=== PATIENT | male | born 1960 | race Caucasian/White ===

== ENCOUNTER 2018-03-04 14:13 | Inpatient (IN) | payer SELFPAY ==
[2018-03-04 14:44] LABS: #Basophils 0.1 thou/uL (0.0-0.2); #Eosinphils 0.9 thou/uL (0.0-0.7); #Lymphocytes 1.7 thou/uL (1.20-3.40); #Monocytes 1.3 thou/uL (0.11-0.59); #Neutrophils 9.2 thou/uL (1.40-6.50); %Basophils 0.7 % (0.0-1.0); %Eosinophils 6.9 % (0.0-10.0); %Lymphocytes 12.6 % (21.0-51.0); %Monocytes 10.1 % (0.0-10.0); %Neutrophils 69.6 % (42.0-75.0); Hemoglobin 11.1 g/dL (14.0-18.0); Mean Corpuscular HGB CONC 33.2 g/dL (32.0-36.0); Mean Corpuscular Hemoglobin 28.9 pg (27.0-31.0); Mean Platelet Volume 7.4 fL (7.4-10.4); Platelet Count 507 thou/uL (130-400); RBC Distribution Width 12.6 % (11.5-14.5); Red Blood Cell (RBC) Count 3.84 mill/uL (4.70-6.10); White Blood Cell (WBC) Count 13.2 thou/uL (4.8-10.8)
[2018-03-04 15:05] LABS: ALT (SGPT) 18 U/L (8-55); AST (SGOT) 12 U/L (5-34); Albumin 4.1 g/dL (3.5-5.0); Alkaline Phosphatase 49 U/L (40-150); Anion Gap 12 mmol/L (10-20); BUN (Urea Nitrogen) 37 mg/dL (8.4-25.7); CK (CPK) 62 U/L (30-200); Calc. Creatinine Clearance 0 mL/min (70-130); Calcium 9.8 mg/dL (7.8-10.44); Carbon Dioxide 23 mmol/L (22-29); Chloride 105 mmol/L (98-107); Estimated GFR-MDRD 57; Globulin 3.3 g/dL (2.4-3.5); Glucose 92 mg/dL (70-105); Potassium 4.1 mmol/L (3.5-5.1); Protein, Total 7.4 g/dL (6.0-8.3); Sodium 136 mmol/L (136-145)
[2018-03-04 15:07] LABS: CKMB 1.5 ng/mL (0-6.6)
--- NOTE | 2018-03-04 16:16 | RAD ---
AP CHEST: Date: 03-04-18 Comparison: 02-02-11 History: Difficulty breathing and left arm pain which began Monday. FINDINGS: AP view chest demonstrates the lungs to be well aerated. No evidence of active intrathoracic disease seen. No evidence of effusions, pneumonia, or pneumothorax seen. IMPRESSION: Unremarkable AP view chest. POS: [facility]
[2018-03-04] MEDS ORDERED: Mag-Al 1200 mg/1200 mg/30 ML UDCUP PO PRN (16:23)
[2018-03-04] MEDS ORDERED: Guaifenesin DM 100-10/5 ML UDCUP PO PRN (16:23)
[2018-03-04] MEDS ORDERED: Ondansetron HCl/PF 4 MG/2 ML Vial IVP PRN (16:23)
--- NOTE | 2018-03-04 16:43 | HP ---
REASON FOR ADMISSION: Bronchitis, chest pain, exertional SOB for eval. HISTORY OF PRESENTING ILLNESS: The patient gives history of being on a cruise and started to develop shortness of breath on minimal exertion from Monday. This was associated with left-sided chest pain and left upper extremity radiation. The chest pain was 4/10 in intensity and was dull in nature. He would get relief on rest. As the patient did not do any activity on on the cruise he was not symptomatic. On Monday and Monday, patient started to move around on the cruise and had similar episodes at least 2 or 3 times. He got out of cruise this morning and came straight from [place] to [facility] here. He lives around here. He has had a prior stress test done in [address] Campos's office and as far as he knows was normal. He never had prior heart failure or angiograms. Has dry cough, but no expectoration. No complaints of palpitations or PND. Has mild orthopnea and is comfortable at present. No complaints of fever at home. PAST MEDICAL AND SURGICAL HISTORY: History of hypertension, dyslipidemia, bilateral lower extremity eczema likely atopic. CURRENT MEDICATIONS: Atenolol 50 mg p.o. twice daily, Norvasc 10 mg daily, Cozaar 100 mg daily, atorvastatin 10 mg daily, gemfibrozil 600 mg p.o. twice daily. ALLERGIES: No known drug allergies. PERSONAL HISTORY: Does not abuse alcohol or drugs. No history of smoking. Lives with his . FAMILY HISTORY: Mother is living and healthy. Father at the age of 74 years. He has had history of dementia, diabetes, and prostate issues. REVIEW OF SYSTEMS: The following complete review of systems was negative, unless otherwise mentioned in the HPI or below: Constitutional: Weight loss or gain, ability to conduct usual activities. Skin: Rash, itching. Eyes: Double vision, pain. ENT/Mouth: Nose bleeding, neck stiffness, pain, tenderness. Cardiovascular: Palpitations, dyspnea on exertion, orthopnea. Respiratory: Shortness of breath, wheezing, cough, hemoptysis, fever or night sweats. Gastrointestinal: Poor appetite, abdominal pain, heartburn, nausea, vomiting, constipation, or diarrhea. Genitourinary: Urgency, frequency, dysuria, nocturia. Musculoskeletal: Pain, swelling. Neurologic/Psychiatric: Anxiety, depression. Allergy/Immunologic: Skin rash, bleeding tendency. PHYSICAL EXAMINATION: GENERAL: The patient is a 57-year-old male who is currently not in any acute distress. VITAL SIGNS: Blood pressure 100/86, pulse 68 per minute, respiratory rate 18 per minute, temperature 98.1 degrees Fahrenheit, and saturating 95% on room air. NECK: Supple, no elevated JVD. EYES: Extraocular muscles intact. Pupils reacting to light. ORAL CAVITY: Mucous membranes are moist. No exudates or congestion. CARDIOVASCULAR SYSTEM: S1, S2 heard. Regular rhythm, murmur+. RESPIRATORY SYSTEM: Air entry 1+ bilateral. Scattered rhonchi plus bilateral. ABDOMEN: Soft, bowel sounds heard. No tenderness, rigidity or guarding. EXTREMITIES: No peripheral edema or calf tenderness. Has skin excoriation with thickening in both lower extremities due to chronic eczema, mainly over the posterior aspect of his both legs. CENTRAL NERVOUS SYSTEM: No gross focal deficits seen. Patient is alert, awake , and oriented well. PSYCHIATRIC SYSTEM: The patient's mood is euthymic. No hallucinations or delusions. LABORATORY DATA AND IMAGING DATA: White count of 13, hemoglobin and hematocrit 11 and 33, platelet count 507 with 69% neutrophils, MCV is 87. Electrolytes stable. BUN 37 and creatinine 1.29. Liver enzymes are within normal limits. Cardiac enzymes x1 is negative. BNP is 225, albumin is 4.1. Chest x-ray done shows no acute infiltrate. EKG done shows normal sinus rhythm at 64 beats per minute, corrected QT interval was 441 milliseconds. CLINICAL IMPRESSION AND PLAN: The patient will be placed under observation on telemetry for sudden onset of exertional dyspnea with typical chest pain. Patient most likely has a component of acute bronchitis with him being on the cruise. We will place him empirically on Levaquin for now. We will also obtain blood cultures and sputum cultures as well. He will be given one dose of Lasix today and 2 more doses in the morning. He will be on albuterol nebulizer. Continue aspirin, Lipitor, and Norvasc as before. We will obtain echo with 2D Doppler for LV function and valvular abnormalities, and a nuclear stress test in the morning. Two more sets of cardiac enzymes will be obtained as well. If needed, further specialist consultation will be requested. He will be currently under observation and if patient were to worsen, he will be switched over to inpatient status. [facility]
[2018-03-04] MEDS ORDERED: Furosemide 40 MG/4 ML VIAL SLOW IVP SCH (17:00)
[2018-03-04] MEDS ORDERED: Levofloxacin 750 mg/D5W 500 MG in Premix Bag 1 BAG IVPB SCH (17:00)
[2018-03-04] MEDS: Gemfibrozil 600 MG TAB PO SCH (18:28)
[2018-03-04 18:40] LABS: Troponin I 0.031 ng/mL (< 0.028)
[2018-03-04] MEDS: Acetaminophen 325 MG TAB PO PRN (20:33)
[2018-03-04] MEDS: Atorvastatin Calcium 10 MG TAB PO SCH (20:34)
[2018-03-04] MEDS ORDERED: Losartan 25 MG TAB PO SCH (21:00)
[2018-03-04 21:05] LABS: Troponin I 0.023 ng/mL (< 0.028)
[2018-03-04] MEDS: Albuterol Sulfate 1.25 MG/3 ML NEB NEB SCH (23:39)
[2018-03-05 04:52] VITALS: BMI 30.1
[2018-03-05 05:13] LABS: #Basophils 0.1 thou/uL (0.0-0.2); #Eosinphils 0.6 thou/uL (0.0-0.7); #Lymphocytes 1.5 thou/uL (1.20-3.40); #Monocytes 1.3 thou/uL (0.11-0.59); #Neutrophils 10.6 thou/uL (1.40-6.50); %Basophils 0.9 % (0.0-1.0); %Eosinophils 4.1 % (0.0-10.0); %Lymphocytes 10.8 % (21.0-51.0); %Monocytes 9.3 % (0.0-10.0); Hemoglobin 11.6 g/dL (14.0-18.0); Mean Corpuscular HGB CONC 33.9 g/dL (32.0-36.0); Mean Corpuscular Hemoglobin 28.7 pg (27.0-31.0); Mean Corpuscular Volume 84.6 fl (80.0-94.0); Mean Platelet Volume 7.6 fL (7.4-10.4); Platelet Count 515 thou/uL (130-400); RBC Distribution Width 12.6 % (11.5-14.5); Red Blood Cell (RBC) Count 4.05 mill/uL (4.70-6.10); White Blood Cell (WBC) Count 14.1 thou/uL (4.8-10.8)
[2018-03-05 05:39] LABS: Anion Gap 14 mmol/L (10-20); BUN (Urea Nitrogen) 39 mg/dL (8.4-25.7); Calc. Creatinine Clearance 63 mL/min (70-130); Calcium 9.4 mg/dL (7.8-10.44); Carbon Dioxide 22 mmol/L (22-29); Cardiac Risk 6.1 (Less than 4.5); Chloride 105 mmol/L (98-107); Cholesterol 141 mg/dl (< 200 Desired); Estimated GFR-MDRD 52; Glucose 112 mg/dL (70-105); HDL Cholesterol 23 mg/dL (>60 Neg Risk); LDL Cholesterol, Calculated 96 mg/dL; Potassium 3.8 mmol/L (3.5-5.1); Sodium 137 mmol/L (136-145); Triglycerides 108 mg/dL (Less than 150)
[2018-03-05] MEDS ORDERED: Furosemide 40 MG/4 ML VIAL SLOW IVP SCH (06:00)
[2018-03-05] MEDS: Albuterol Sulfate 1.25 MG/3 ML NEB NEB SCH ×3 (08:27→23:56)
[2018-03-05] MEDS: Gemfibrozil 600 MG TAB PO SCH ×2 (08:38→19:23)
[2018-03-05] MEDS ORDERED: Enoxaparin Sodium 40 MG/0.4 ML SYRINGE SC SCH (09:00)
[2018-03-05] MEDS: Aspirin 325 MG TAB PO SCH (12:06)
[2018-03-05] MEDS: Amoxicillin/Potassium Clav 875 MG TAB PO SCH ×2 (12:07→19:44)
[2018-03-05] MEDS: Amlodipine 10 MG TAB PO SCH (12:07)
[2018-03-05] MEDS ORDERED: Regadenoson 0.4 MG/5 ML SYRINGE ONE (12:07)
[2018-03-05] MEDS: Acetaminophen 325 MG TAB PO PRN (12:12)
--- NOTE | 2018-03-05 12:22 | NM ---
NUCLEAR MEDICINE CARDIAC PERFUSION EXAMINATION WITH EJECTION FRACTION: HISTORY: A 57-year-old male with chest pain that is exacerbated with exercise and laying down. TECHNIQUE: A single-day nuclear medicine cardiac perfusion examination was performed. Rest images were obtained using 9.9 mCi of Technetium 99m sestamibi. Stress images were obtained using 33 mCi of Technetium 9 9m sestamibi and LexiScan. FINDINGS: Tomographic images show a small reversible perfusion defect along the lateral wall and apex. Gated i mages show normal wall motion with an ejection fraction of 62%. EDV is 131 mL. LHR is 0.5. TID is 1.4. IMPRESSION: Possible lateral/apical ischemia. POS: [facility]
--- NOTE | 2018-03-05 12:30 | PDOC.PN ---
- Subjective Encounter Start Date: 03/05/18 Encounter Start Time: 07:00 Subjective: no chest pain or palp -: still has exertional sob - Objective Resuscitation Status: Resuscitation Status FULL:Full Resuscitation MAR Reviewed: Yes Vital Signs & Weight: Vital Signs (12 hours) Temp Pulse Resp BP Pulse Ox 03/05/18 12:09 97.2 F L 84 20 119/55 L 97 03/05/18 08:27 70 16 96 03/05/18 08:00 98.0 F 70 16 03/05/18 07:40 98 F 71 18 107/54 L 94 L 03/05/18 03:49 98.2 F 75 18 129/60 96 Weight Weight 171 lb 8 oz I&O: 03/04/18 03/05/18 03/06/18 06:59 06:59 06:59 Intake Total 414 Output Total 1650 Balance -1236 Result Diagrams: 03/05/18 04:21 03/05/18 04:21 Phys Exam - Physical Examination HEENT: PERRLA, moist MMs Neck: no JVD, supple Respiratory: no wheezing, no rales Cardiovascular: RRR murmur++ Gastrointestinal: soft, non-tender, positive bowel sounds Musculoskeletal: no edema, pulses present Neurological: non-focal, moves all 4 limbs Psychiatric: normal affect, A&O x 3 Dx/Plan (1) Chest pain Code(s): R07.9 - CHEST PAIN, UNSPECIFIED Status: Acute (2) Acute bronchitis Code(s): J20.9 - ACUTE BRONCHITIS, UNSPECIFIED Status: Acute Qualifiers: Bronchitis organism: unspecified organism Qualified Code(s): J20.9 - Acute bronchitis, unspecified (3) HTN (hypertension) Code(s): I10 - ESSENTIAL (PRIMARY) HYPERTENSION Status: Chronic Qualifiers: Hypertension type: essential hypertension Qualified Code(s): I10 - Essential (primary) hypertension (4) Dyslipidemia Code(s): E78.5 - HYPERLIPIDEMIA, UNSPECIFIED Status: Chronic - Plan viral pcr is -ve -: await echo for estimation of valvular defect -: abnormal stress test, keep pt npo, cardio consult -: on asp, lipitor, norvasc, augmentin and alb neb -: watch for renal function, will gently hydrate in view of possible cath * . Review of Systems - Medications/Allergies Allergies/Adverse Reactions: Allergies Allergy/AdvReac Type Severity Reaction Status Date / Time No Known Drug Allergies Allergy Verified 03/04/18 18:40 Medications: Current Medications Acetaminophen (Tylenol) 650 mg PO Q4H PRN PRN Reason: Headache/Fever or Pain Last Admin: 03/05/18 12:12 Dose: 650 mg Al Hydroxide/Mg Hydroxide (Maalox) 30 ml PO Q6H PRN PRN Reason: Heartburn or Indigestion Albuterol Sulfate (Albuterol Sulfate) 1.25 mg NEB [id number] [facility] Last Admin: 03/05/18 08:27 Dose: 1.25 mg Amlodipine Besylate (Norvasc) 10 mg PO DAILY [facility] Last Admin: 03/05/18 12:07 Dose: 10 mg Amoxicillin/Clavulanate Potassium (Augmentin) 875 mg PO Q12HR [facility] Last Admin: 03/05/18 12:07 Dose: 875 mg Aspirin (Aspirin) 325 mg PO DAILY [facility] Last Admin: 03/05/18 12:06 Dose: 325 mg Atorvastatin Calcium (Lipitor) 10 mg PO HS [facility] Last Admin: 03/04/18 20:34 Dose: 10 mg Enoxaparin Sodium (Lovenox) 40 mg SC 0900 [facility] Gemfibrozil (Lopid) 600 mg PO BID-AC [facility] Last Admin: 03/05/18 08:38 Dose: Not Given Guaifenesin/Dextromethorphan (Robitussin Dm) 15 ml PO Q4H PRN PRN Reason: Cough Last Admin: 03/04/18 20:35 Dose: 15 ml Ondansetron HCl (Zofran) 4 mg IVP Q6H PRN PRN Reason: Nausea/Vomiting Sodium Chloride (Flush - Normal Saline) 10 ml IVF Q12HR [facility] Sodium Chloride (Flush - Normal Saline) 10 ml IVF PRN PRN PRN Reason: Saline Flush
[2018-03-05] MEDS ORDERED: Sodium Chloride 0.9% 1,000 ML IV SCH (12:45)
[2018-03-05] MEDS ORDERED: Communication Order-Pharmacy FS SCH (17:00)
--- NOTE | 2018-03-05 18:39 | CON ---
DATE OF ADMISSION: 03/04/2018 DATE OF CONSULTATION: 03/05/2018 INDICATION FOR CONSULTATION: A 57-year-old patient with shortness of breath and chest discomfort and abnormal stress test as well as a history of mitral valve regurgitation. HISTORY OF PRESENT ILLNESS: This is a very pleasant 57-year-old gentleman who is hard of hearing and was on a cruise recently and had increased problems breathing. He yesterday had shortness of breath . He has some dyspnea on exertion and also had some paroxysmal nocturnal dyspnea. For the last 2 or 3 nights on the ship, he has more difficulty breathing. He also complained of some left arm pain an d chest heaviness. He said after he sat up, he felt somewhat better. He did take ibuprofen, but no aspirin. He has had his last stress test in 2013, which was unremarkable. He also had an echocardio gram, which showed mitral valve regurgitation at that time and this was moderate to severe. He was t o follow up in the office six months later and he failed to do so. He also had mild aortic valve reg urgitation at that time. Ejection fraction was within normal limits at 55% to 60%. He denied any ot her previous cardiac history. PAST MEDICAL HISTORY: Significant for pneumonia in 2009 and partial deafness. SOCIAL HISTORY: He is . He has no children. He has no tobacco abuse. He has occasional alc ohol use. He works repairing boots and shoes. FAMILY HISTORY: Unremarkable for any early heart disease. MEDICATIONS: Include albuterol inhaler, he is on Norvasc 10 mg a day, amoxicillin, atorvastatin 10 m g q.p.m., Lovenox, he was given also a dose of Lasix, he is on gemfibrozil 600 mg b.i.d., as well as other p.r.n. medications. REVIEW OF SYSTEMS: He has decreased hearing. He has partial plates. He wears glasses to read. Oth erwise, 12-point review of systems unremarkable. PHYSICAL EXAMINATION: GENERAL: Reveals a well-developed, well-nourished gentleman. VITAL SIGNS: Blood pressure 119/55, heart rate 84 and regular. He is afebrile, respiratory rate 16. HEENT: Shows head to be normocephalic and atraumatic. Carotid pulses are present. There is radiati on from the cardiac area up into the carotids, but does not appear to be carotid artery stenosis. CHEST: Clear to auscultation without rales, rhonchi or wheezing. CARDIOVASCULAR: Reveals a regular rate and rhythm. He has a harsh 4/6 systolic murmur at the apex. He also has a systolic murmur over the aortic area, which may be some radiation from the mitral area s. This is over the entire precordium. There were no heaves or thrills noted. ABDOMEN: Soft and nontender with positive bowel sounds. No organomegaly or masses are noted. Femor al pulses are present. EXTREMITIES: Showed no clubbing or cyanosis. He does have some discoloration in the bilateral lower legs and pedal pulses were present, but are difficult to palpate, cannot palpate the dorsalis pedis on the right foot. The posterior tibial was present, could not palpate a posterior tibial on the lef t side, but could palpate a dorsalis pedis. NEUROLOGIC: The patient appears to be intact. He has normal strength and tone. SKIN: Warm and dry. LABORATORY DATA AND IMAGING: EKG shows a normal sinus rhythm with no acute changes. Cardiac enzymes show a troponin I of 0.02 admission, which increased up to 0.031 and decreased back down to 0.023. MB 1.5. His BNP was 225, LDL was 96. His other laboratory data was unremarkable. His creatinine is 1.4 after he was given diuretics. Otherwise, he has remained stable. Potassium is 3.8. His stress test was abnormal. He did undergo a Cardiolite study today and the results showed what appeared to be possible lateral apical ischemia. IMPRESSION AND PLAN: 1. A 57-year-old patient with shortness of breath, history of mitral valve regurgitation and abnorm al stress test with increasing shortness of breath and dyspnea on exertion. Given all these symptoms and his history, he will best be served by undergoing cardiac catheterization as a definitive tool t o evaluate his coronary artery status. We will plan for this tomorrow. We will discuss this with Dr Amber Campos as he has seen the patient in the past and was hopefully schedule the patient for tomorrow morning for cardiac catheterization. At this time, I would continue his present medications. If he has any acute changes, he may become an emergent catheterization tonight. It was unlikely he seems to be very comfortable at this time. 2. History of mitral valve regurgitation. This appears to be relatively severe at this time. He ma y need to undergo mitral valve repair or replacement. We will continue to follow this very carefully with this patient. He may need to have further evaluation, certainly coronary artery status will ne ed to be identified first. 3. History of hypertension, that appears to be under good control at this time. 4. Hyperlipidemia. He will continue his present medications with statin medications. Further care of the patient will be determined by Dr. Campos.
[2018-03-05] MEDS: Atorvastatin Calcium 10 MG TAB PO SCH (19:44)
[2018-03-06] MEDS: Gemfibrozil 600 MG TAB PO SCH ×2 (06:18→17:12)
[2018-03-06] MEDS: Amoxicillin/Potassium Clav 875 MG TAB PO SCH ×2 (06:18→19:41)
[2018-03-06] MEDS: Aspirin 325 MG TAB PO SCH (06:18)
[2018-03-06] MEDS ORDERED: Lidocaine 1% (PF) 30 ML VIAL ONE (07:27)
[2018-03-06] MEDS ORDERED: Heparin 10,000 UNITS/1 ML VIAL ONE (07:28)
[2018-03-06] MEDS ORDERED: Communication Order-Pharmacy FS SCH (07:30)
[2018-03-06] MEDS ORDERED: Sodium Chloride 0.9% 1,000 ML IV SCH ×2 (07:30→09:23)
[2018-03-06] MEDS ORDERED: Fentanyl 250 MCG/5 ML VIAL ONE (08:00)
[2018-03-06] MEDS ORDERED: Midazolam HCl 2 mg/2 ml Vial ONE (08:00)
[2018-03-06] MEDS: Albuterol Sulfate 1.25 MG/3 ML NEB NEB SCH ×3 (08:06→19:40)
[2018-03-06] MEDS ORDERED: Protamine Sulfate 50 MG/5 ML VIAL ONE (08:56)
[2018-03-06] MEDS ORDERED: Acetaminophen/Codeine 30-300mg Tablet PO PRN ×2 (09:22)
[2018-03-06] MEDS ORDERED: Nitroglycerin 0.4 MG TAB (25 Tab Bottle) SL PRN (09:22)
[2018-03-06] MEDS ORDERED: traMADol HCl 50 MG TAB PO PRN (09:22)
[2018-03-06] MEDS ORDERED: Sodium Chloride 0.9% 200 ML IV SCH (09:30)
[2018-03-06 10:27] LABS: Anion Gap 14 mmol/L (10-20); BUN (Urea Nitrogen) 31 mg/dL (8.4-25.7); Calc. Creatinine Clearance 90 mL/min (70-130); Calcium 9.2 mg/dL (7.8-10.44); Carbon Dioxide 19 mmol/L (22-29); Chloride 106 mmol/L (98-107); Estimated GFR-MDRD 78; Glucose 117 mg/dL (70-105); Potassium 4.2 mmol/L (3.5-5.1); Sodium 135 mmol/L (136-145)
[2018-03-06] MEDS: Amlodipine 10 MG TAB PO SCH (12:30)
--- NOTE | 2018-03-06 12:47 | PDOC.PN ---
- Subjective Encounter Start Date: 03/06/18 Encounter Start Time: 11:00 Subjective: no sob or palpitations -: had cath done this am - Objective Resuscitation Status: Resuscitation Status FULL:Full Resuscitation MAR Reviewed: Yes Vital Signs & Weight: Vital Signs (12 hours) Temp Pulse Resp BP BP Pulse Ox 03/06/18 12:30 81 03/06/18 11:25 81 16 139/60 95 03/06/18 07:35 97.8 F 81 20 03/06/18 04:40 97.8 F 81 20 95/52 L 95 Weight Weight 172 lb 6.4 oz I&O: 03/05/18 03/06/18 03/07/18 06:59 06:59 06:59 Intake Total 414 935 Output Total 1650 1275 Balance -1236 -340 Result Diagrams: 03/05/18 04:21 03/06/18 09:51 Phys Exam - Physical Examination HEENT: PERRLA, moist MMs Neck: no JVD, supple Respiratory: no wheezing, no rales Cardiovascular: RRR murmur+ Gastrointestinal: soft, no distention, positive bowel sounds Musculoskeletal: no edema, pulses present Neurological: non-focal, moves all 4 limbs Psychiatric: A&O x 3 Dx/Plan (1) Mitral regurgitation Status: Acute Qualifiers: Cardiac valve disease etiology: nonrheumatic Qualified Code(s): I34.0 - Nonrheumatic mitral (valve) insufficiency (2) Hypertrophic cardiomyopathy Code(s): I42.2 - OTHER HYPERTROPHIC CARDIOMYOPATHY Status: Chronic (3) Chest pain Code(s): R07.9 - CHEST PAIN, UNSPECIFIED Status: Resolved Qualifiers: Chest pain type: unspecified Qualified Code(s): R07.9 - Chest pain, unspecified (4) Acute bronchitis Code(s): J20.9 - ACUTE BRONCHITIS, UNSPECIFIED Status: Resolved Qualifiers: Bronchitis organism: unspecified organism Qualified Code(s): J20.9 - Acute bronchitis, unspecified (5) HTN (hypertension) Code(s): I10 - ESSENTIAL (PRIMARY) HYPERTENSION Status: Chronic Qualifiers: Hypertension type: essential hypertension Qualified Code(s): I10 - Essential (primary) hypertension (6) Dyslipidemia Code(s): E78.5 - HYPERLIPIDEMIA, UNSPECIFIED Status: Chronic - Plan d/w , plan is for transfer to higher level hospital -: dc when accepted -: d/w and patient in detail about cath findings and reason for tx -: will require myomectomy with MVR * . Review of Systems - Medications/Allergies Allergies/Adverse Reactions: Allergies Allergy/AdvReac Type Severity Reaction Status Date / Time No Known Drug Allergies Allergy Verified 03/04/18 18:40 Medications: Current Medications Acetaminophen (Tylenol) 650 mg PO Q4H PRN PRN Reason: Headache/Fever or Pain Last Admin: 03/05/18 12:12 Dose: 650 mg Acetaminophen/Codeine Phosphate (Tylenol #3) 1 tab PO Q4H PRN PRN Reason: Mild Pain (1-3) Acetaminophen/Codeine Phosphate (Tylenol #3) 2 tab PO Q4H PRN PRN Reason: Moderate Pain (4-6) Al Hydroxide/Mg Hydroxide (Maalox) 30 ml PO Q6H PRN PRN Reason: Heartburn or Indigestion Albuterol Sulfate (Albuterol Sulfate) 1.25 mg NEB [id number] [facility] Last Admin: 03/06/18 08:06 Dose: Not Given Amlodipine Besylate (Norvasc) 10 mg PO DAILY [facility] Last Admin: 03/06/18 12:30 Dose: Not Given Amoxicillin/Clavulanate Potassium (Augmentin) 875 mg PO Q12HR [facility] Last Admin: 03/06/18 06:18 Dose: 875 mg Aspirin (Aspirin) 325 mg PO DAILY [facility] Last Admin: 03/06/18 06:18 Dose: 325 mg Atorvastatin Calcium (Lipitor) 20 mg PO HS [facility] Gemfibrozil (Lopid) 600 mg PO BID-AC [facility] Last Admin: 03/06/18 06:18 Dose: 600 mg Guaifenesin/Dextromethorphan (Robitussin Dm) 15 ml PO Q4H PRN PRN Reason: Cough Last Admin: 03/04/18 20:35 Dose: 15 ml Sodium Chloride (Normal Saline 0.9%) 1,000 mls @ 125 mls/hr IV .Q8H [facility] Stop: 03/06/18 15:00 Last Admin: 03/06/18 12:30 Dose: Not Given Miscellaneous Information (Communication Order-Pharmacy) 0 each FS [facility] Stop: 03/06/18 21:00 Nitroglycerin (Nitrostat) 0.4 mg SL Q5MIN PRN PRN Reason: Chest Pain Ondansetron HCl (Zofran) 4 mg IVP Q6H PRN PRN Reason: Nausea/Vomiting Sodium Chloride (Flush - Normal Saline) 10 ml IVF Q12HR [facility] Last Admin: 03/06/18 06:19 Dose: Not Given Sodium Chloride (Flush - Normal Saline) 10 ml IVF PRN PRN PRN Reason: Saline Flush Tramadol HCl (Ultram) 50 mg PO Q6H PRN PRN Reason: Moderate Pain (4-6)
--- NOTE | 2018-03-06 15:42 | CCL ---
CARDIAC CATHETERIZATION REPORT: Date; 03/06/18 PROCEDURE: Left and right heart catheterization, selective arteriography, and left ventriculography. INDICATION: Abnormal Cardiolite. Moderate to severe mitral regurgitation. DESCRIPTION OF PROCEDURE: The patient was brought to the cardiac quality lab assoc and the right groin was prepped and draped in the usu al fashion. 1% lidocaine was infiltrated. A 7 Macedonian sheath was placed into the right femoral vein, f ollowed by a 6 [place]onian sheath in the right femoral artery. Heparin 3,000 units given. A S-tipped therm odilution [place]-Greg catheter was inserted and right heart pressures were obtained. Double lumen pigta il was then advanced into the proximal aorta and pressure was obtained from both lumens with good tra cking of the pressure waveform. This was then easily advanced into the left ventricle. There appeared to not be any significant gradient across the aortic valve initially; however, the pigtail was advan micheline further to the LV apex and there was significant gradient. The pigtail was removed and a 6 Macedonian Multipurpose was inserted for better documentation of the pressure waveform. A slow pullback was per formed from the LV apex into the aorta. The Multipurpose was then removed. A 6 Macedonian angulated pigta il was inserted and pressures were obtained. Left ventriculogram was performed using 30 ml of contras t at 12 ml/s in a LUCAS 30 degree projection. Pressures were obtained and the pigtail was removed slowl y, again showing the intracavitary gradient. A 6 Macedonian Liborio left-4 followed by a 6 [place]onian Lib[place] right-4 was used for coronary arteriography. Protamine 10 mg given. The sheaths were pulled and adeq uate hemostasis was obtained. RESULTS: PRESSURES: Right Atrium 10/6, mean of 5 Right Ventricle 54/1 Pulmonary Artery 46/23, mean of 31 Pulmonary Capillary Wedge 17/23, mean of 14 LV Apical 220/18 LV Subaortic 150/68 Aorta 130/70 HEMODYNAMICS: Cardiac Output 5.14 liters/minute Cardiac Index 2.8 liters/minute/M2 LEFT VENTRICULOGRAM: Normal left ventricular systolic function with ejection fraction of 65-70%. There was moderate to sev ere mitral regurgitation. CORONARY ARTERIOGRAPHY: 1. The left main was normal. 2. The LAD had a 20% proximal stenosis and 30% first diagonal stenosis. 3. The circumflex was normal. 4. The right coronary artery had a 10% proximal stenosis. IMPRESSION: 1. Mild coronary artery disease. 2. Hypertrophic obstructive cardiomyopathy with approximately a 70% intracavitary gradient. 3. Moderate to severe mitral regurgitation. 4. Pulmonary artery hypertension.
[2018-03-06] MEDS ORDERED: Atorvastatin Calcium 20 MG TAB PO SCH (21:00)
[2018-03-07 05:23] LABS: #Basophils 0.1 thou/uL (0.0-0.2); #Eosinphils 1.1 thou/uL (0.0-0.7); #Lymphocytes 1.6 thou/uL (1.20-3.40); #Monocytes 0.9 thou/uL (0.11-0.59); #Neutrophils 7.7 thou/uL (1.40-6.50); %Eosinophils 9.6 % (0.0-10.0); %Monocytes 7.7 % (0.0-10.0); %Neutrophils 67.7 % (42.0-75.0); Hemoglobin 11.1 g/dL (14.0-18.0); Mean Corpuscular HGB CONC 31.7 g/dL (32.0-36.0); Mean Corpuscular Hemoglobin 26.9 pg (27.0-31.0); Mean Corpuscular Volume 84.8 fl (80.0-94.0); Mean Platelet Volume 6.7 fL (7.4-10.4); Platelet Count 485 thou/uL (130-400); RBC Distribution Width 12.5 % (11.5-14.5); Red Blood Cell (RBC) Count 4.13 mill/uL (4.70-6.10); White Blood Cell (WBC) Count 11.3 thou/uL (4.8-10.8)
[2018-03-07 05:39] LABS: Anion Gap 12 mmol/L (10-20); BUN (Urea Nitrogen) 22 mg/dL (8.4-25.7); Calc. Creatinine Clearance 95 mL/min (70-130); Calcium 9.3 mg/dL (7.8-10.44); Carbon Dioxide 24 mmol/L (22-29); Chloride 106 mmol/L (98-107); Estimated GFR-MDRD 85; Glucose 170 mg/dL (70-105); Potassium 3.8 mmol/L (3.5-5.1); Sodium 138 mmol/L (136-145)
[2018-03-07] MEDS: Albuterol Sulfate 1.25 MG/3 ML NEB NEB SCH ×2 (07:00→13:26)
[2018-03-07] MEDS: Gemfibrozil 600 MG TAB PO SCH (08:10)
[2018-03-07] MEDS: Aspirin 325 MG TAB PO SCH (08:10)
[2018-03-07] MEDS: Amlodipine 10 MG TAB PO SCH (08:10)
[2018-03-07] MEDS: Amoxicillin/Potassium Clav 875 MG TAB PO SCH (08:11)
[2018-03-07] MEDS ORDERED: Furosemide 20 MG TAB PO SCH (10:30)
[2018-03-07] MEDS ORDERED: Atenolol 50 MG TAB PO SCH ×2 (10:45→21:00)
--- NOTE | 2018-03-07 14:28 | PDOC.PN ---
- Subjective Encounter Start Date: 03/07/18 Encounter Start Time: 14:26 Mr. Aguilar was seen today in follow-up of chest pain and dyspnea. He does not have any complaints today. - Objective Resuscitation Status: Resuscitation Status FULL:Full Resuscitation MAR Reviewed: Yes Vital Signs & Weight: Vital Signs (12 hours) Temp Pulse Pulse Pulse Resp BP BP 03/07/18 13:26 77 16 03/07/18 11:05 97.6 F 87 18 03/07/18 11:01 87 144/73 H 03/07/18 09:42 93 97 136/62 03/07/18 08:10 82 129/62 03/07/18 08:05 97.7 F 82 18 03/07/18 07:42 97.7 F 89 18 03/07/18 07:00 102 H 16 03/07/18 04:32 98.0 F 84 18 BP BP Pulse Ox Pulse Ox Pulse Ox 03/07/18 13:26 98 03/07/18 11:05 148/69 H 99 03/07/18 11:01 03/07/18 09:42 159/69 H 97 97 03/07/18 08:10 03/07/18 08:05 97 03/07/18 07:42 135/64 97 03/07/18 07:00 99 03/07/18 04:32 141/65 H 95 Weight Weight 169 lb 11.2 oz I&O: 03/06/18 03/07/18 03/08/18 06:59 06:59 06:59 Intake Total 935 960 Output Total 1275 1300 Balance -340 -340 Result Diagrams: 03/07/18 05:14 03/07/18 05:14 Phys Exam - Physical Examination HEENT: PERRLA Respiratory: no wheezing, no rales, no rhonchi, clear to auscultation bilateral Cardiovascular: RRR, no significant murmur, no rub Gastrointestinal: soft, non-tender, no distention, positive bowel sounds Musculoskeletal: no edema Dx/Plan (1) Mitral regurgitation Status: Acute Qualifiers: Cardiac valve disease etiology: nonrheumatic Qualified Code(s): I34.0 - Nonrheumatic mitral (valve) insufficiency (2) Dyslipidemia Code(s): E78.5 - HYPERLIPIDEMIA, UNSPECIFIED Status: Chronic (3) HTN (hypertension) Code(s): I10 - ESSENTIAL (PRIMARY) HYPERTENSION Status: Chronic Qualifiers: Hypertension type: essential hypertension Qualified Code(s): I10 - Essential (primary) hypertension (4) Hypertrophic cardiomyopathy Code(s): I42.2 - OTHER HYPERTROPHIC CARDIOMYOPATHY Status: Chronic (5) Acute bronchitis Code(s): J20.9 - ACUTE BRONCHITIS, UNSPECIFIED Status: Resolved Qualifiers: Bronchitis organism: unspecified organism Qualified Code(s): J20.9 - Acute bronchitis, unspecified - Plan * HOCM- patient is clinically stable. He can be discharged, and close outpatient Cardiology follow-up..
[2018-03-07 15:25] VITALS: BP 130/64; TEMP 97.9
[2018-03-08] MEDS ORDERED: Furosemide 20 MG TAB PO SCH (09:00)
== END 2018-03-07 15:30 | disposition home or self-care (01) | DRG 287 ==
LOC: ERS 14:13 → 2SW 16:12 → OBSVTOIN 16:12
PROVIDERS: ADMIT Internal Medicine; ATTEND Internal Medicine
PROC: 4A023N8 Measurement of Cardiac Sampling and Pressure, Bilateral, Percutaneous Approach (ICD-10-PCS; principal; 2018-03-06)
PROC: B2111ZZ Fluoroscopy of Multiple Coronary Arteries using Low Osmolar Contrast (ICD-10-PCS; 2018-03-06)
PROC: B2151ZZ Fluoroscopy of Left Heart using Low Osmolar Contrast (ICD-10-PCS; 2018-03-06)
DX: I34.0 Nonrheumatic mitral (valve) insufficiency (principal); I27.21 Secondary pulmonary arterial hypertension; I42.2 Other hypertrophic cardiomyopathy; I10 Essential (primary) hypertension; E78.5 Hyperlipidemia, unspecified; J20.9 Acute bronchitis, unspecified; R06.09 Other forms of dyspnea; H91.8X3 Other specified hearing loss, bilateral; I25.10 Atherosclerotic heart disease of native coronary artery without angina pectoris; Z79.82 Long term (current) use of aspirin
CPT/HCPCS: 36415; 71045; 78452; 80048; 80053; 80061; 82550; 82553; 83880; 84484; 85025; 85347; 87040; 87633; 93005; 93017; 93306; 93460; 93567; 93798; 94640; 94760; 99152; A4216; A9500; C1769; J1644; J1650; J1940; J1956; J2001; J2250; J2720; J2785; J3010

== ENCOUNTER 2019-12-21 23:19 | Emergency (ER) | payer BC, SELFPAY ==
[2019-12-22 00:58] LABS: Bilirubin Negative (Negative); Blood, Urine Negative (Negative); Clarity Clear (Clear); Glucose, Urine (Dipstick) Normal (Negative); Leukocyte 25 Leu/uL (Negative); Nitrite Negative (Negative); Protein, Urine (Dipstick) Negative (Neg-Trace); RBC/HPF 0-3 HPF (0-3); Squamous Epithelial None Seen HPF (0-3)
[2019-12-22 01:10] LABS: Bacteria/HPF 1+ HPF (None Seen)
--- NOTE | 2019-12-22 06:15 | ULT ---
TESTICULAR ULTRASOUND: INDICATIONS: Right sided testicular pain and swelling. TECHNIQUE: Lux-scale and color Doppler with spectral Doppler images were obtained of the scrotum. FINDINGS: The right testicle measures 4.6 x 3.1 x 3.5 cm. The left testicle measures 4.7 x 3.4 x 3 cm. There is normal flow to both testicles. No intratesticular mass is evident. There is enlargement and hypervascularity involving the right epididymis with a small right sided hyd rocele. There is slight complexity involving the right hydrocele. IMPRESSION: Right sided epididymitis with mildly complex right sided hydrocele. POS: [facility]
== END 2019-12-22 01:30 | disposition home or self-care (01) ==
LOC: ERS 23:19
DX: N45.1 Epididymitis (principal); I10 Essential (primary) hypertension; E78.5 Hyperlipidemia, unspecified; E78.00 Pure hypercholesterolemia, unspecified; Z79.899 Other long term (current) drug therapy
CPT/HCPCS: 76870; 81003; 81015; 87077; 87086; 87186; 93976

== ENCOUNTER 2023-02-23 08:21 | Emergency (ER) | payer BC ==
[2023-02-23] MEDS ORDERED: fentaNYL 50 mcg/mL 1 mL Vial ONE ×2 (09:20→09:40)
[2023-02-23] MEDS ORDERED: Ketorolac Tromethamine 30 MG/ML VIAL ONE (10:00)
== END 2023-02-23 10:41 | disposition home or self-care (01) ==
LOC: ERS 08:21
DX: S43.004A Unspecified dislocation of right shoulder joint, initial encounter (principal); I10 Essential (primary) hypertension; E78.00 Pure hypercholesterolemia, unspecified; W17.89XA Other fall from one level to another, initial encounter
CPT/HCPCS: 23650; 94760; 96374; 96375; J1885; J3010